=== PATIENT | female | born 1975 | race African-American/Black ===

== ENCOUNTER 2018-05-24 18:53 | Emergency (ER) | payer OTHER ==
[~2018-05-24] VITALS: Ht 172.7 cm; Wt 84.0 kg
[2018-05-24] MEDS ORDERED: KETOROLAC 60MG/2ML VIAL IM ONE (21:15)
[2018-05-24] MEDS ORDERED: ACETAMINOPHEN 325MG TABLET PO ONE (21:30)
[2018-05-24 23:37] VITALS: BP 142/104
== END 2018-05-24 23:40 | disposition home or self-care (01) ==
LOC: ER 18:53
DX: S10.93XA Contusion of unspecified part of neck, initial encounter (principal); S30.0XXA Contusion of lower back and pelvis, initial encounter; S60.212A Contusion of left wrist, initial encounter; R07.89 Other chest pain; V49.9XXA Car occupant (driver) (passenger) injured in unspecified traffic accident, initial encounter; Y93.89 Activity, other specified; Y92.89 Other specified places as the place of occurrence of the external cause; Y99.8 Other external cause status
CPT/HCPCS: 71045; 73130; 96372; 99283; J1885; 99406